=== PATIENT | male | born 1990 | race African-American/Black ===

== ENCOUNTER 2019-05-01 | Emergency (ER) | payer OTHER ==
[2019-05-01] MEDS ORDERED: HYDROCO/APAP1 TA9 PO (09:39)
== END 2019-05-01 10:40 | disposition home or self-care (01) ==
DX: S42.252A Displaced fracture of greater tuberosity of left humerus, initial encounter for closed fracture (principal); F17.210 Nicotine dependence, cigarettes, uncomplicated; W18.2XXA Fall in (into) shower or empty bathtub, initial encounter; Y93.E1 Activity, personal bathing and showering; Y92.002 Bathroom of unspecified non-institutional (private) residence as the place of occurrence of the external cause

== ENCOUNTER 2019-08-08 | Emergency (ER) | payer OTHER ==
[~2019-08-08] MED LIST: HYDROCO/APAP1 TA9 PO
[2019-08-08] MEDS ORDERED: VOLTAREN1%GEL TOP (16:59)
== END 2019-08-08 17:09 | disposition left against medical advice (07) | DRG 379 ==
DX: K92.0 Hematemesis (principal); R07.81 Pleurodynia; R10.9 Unspecified abdominal pain; S80.811A Abrasion, right lower leg, initial encounter; R22.0 Localized swelling, mass and lump, head; Y04.0XXA Assault by unarmed brawl or fight, initial encounter; Y92.149 Unspecified place in prison as the place of occurrence of the external cause; Z91.19 Patient's noncompliance with other medical treatment and regimen

== ENCOUNTER 2020-07-18 | Emergency (ER) | payer OTHER ==
[~2020-07-18] MED LIST changes: +VOLTAREN1%GEL TOP
[2020-07-18 12:33] LABS: HEMATOCRIT 33.3 % (39.0-50.0); HEMOGLOBIN 11.2 g/dl (14.0-18.0); IMMATURE GRANULOCYTES 0.7 % (0.0-5.0); MEAN CELL VOLUME 81.8 fL CALC (80.0-100.0); MEAN CORPUSCULAR HGB 27.5 pG CALC (26.0-32.0); MEAN CORPUSCULAR HGB CONC 33.6 g/dL CAL (32.0-36.0); NEUT# 8.7 thou/uL (1.82-7.42); RED BLOOD COUNT 4.07 mill/uL (4.70-6.10); RED CELL DISTRI WIDTH 13.1 % (11.5-15.5)
[2020-07-18 12:44] LABS: ALBUMIN 3.6 g/dL (3.2-5.0); ALKALINE PHOSPHATASE 74 u/l (38-126); ANION GAP 13 (6-22 (CALC)); BILIRUBIN, TOTAL 0.8 mg/dL (0.0-1.4); BUN 19 mg/dL (9-20); BUN/CREATININE RATIO 30 (12-20 (CALC)); CARBON DIOXIDE 30 mmol/l (22-30); CHLORIDE 88 mmol/l (95-108); CREATININE 0.6 mg/dL (0.7-1.3); ETHYL ALCOHOL 0 mg/dl (0-30); GFR > 60 ML/MIN (>=60 (CALC)); GFR FOR AFR.AMER. > 60 ML/MIN (>=60 (CALC)); LIPASE 310 u/l (23-300); SGOT/AST 25 u/l (17-59); SODIUM 128 mmol/l (137-146); TOTAL PROTEIN 7.1 g/dL (6.3-8.2)
[2020-07-18 13:15] LABS: URINE BLOOD DIPSTICK NEGATIVE (NEGATIVE); URINE COLOR YELLOW; URINE GLUCOSE - DIPSTICK NEGATIVE (NEGATIVE); URINE KETONE 40 mg/dL (NEGATIVE); URINE LEUK ESTERASE NEGATIVE (NEGATIVE); URINE PROTEIN - DIPSTICK NEGATIVE (NEG-TRACE)
[2020-07-18 13:16] LABS: URINE BILIRUBIN - DIPSTICK SMALL (NEGATIVE)
[2020-07-18 13:17] LABS: URINE NITRITE - DIPSTICK NEGATIVE (Negative)
== END 2020-07-18 14:05 | disposition left against medical advice (07) | DRG 382 ==
DX: K25.5 Chronic or unspecified gastric ulcer with perforation (principal); L98.9 Disorder of the skin and subcutaneous tissue, unspecified; F17.200 Nicotine dependence, unspecified, uncomplicated; R45.1 Restlessness and agitation; Z91.19 Patient's noncompliance with other medical treatment and regimen
CPT/HCPCS: Q9967

== ENCOUNTER 2020-07-28 21:15 | Emergency (ER) | payer OTHER ==
[2020-07-28 22:08] LABS: IMMATURE GRANULOCYTES 0.7 % (0.0-5.0); MEAN CORPUSCULAR HGB 27.4 pG CALC (26.0-32.0); MEAN CORPUSCULAR HGB CONC 32.2 g/dL CAL (32.0-36.0); NEUT# 14.66 thou/uL (1.82-7.42); RED BLOOD COUNT 3.14 mill/uL (4.70-6.10); RED CELL DISTRI WIDTH 14.4 % (11.5-15.5)
[2020-07-28 22:09] LABS: HEMATOCRIT 26.7 % (39.0-50.0); HEMOGLOBIN 8.6 g/dl (14.0-18.0)
[2020-07-28 22:25] LABS: PROTHROMBIN TIME 10.3 SECONDS (9.0-12.5)
[2020-07-28 22:28] LABS: ALBUMIN 3.5 g/dL (3.2-5.0); ALKALINE PHOSPHATASE 76 u/l (38-126); AMYLASE 83 u/l (30-110); BUN 10 mg/dL (9-20); BUN/CREATININE RATIO 18 (12-20 (CALC)); CARBON DIOXIDE 29 mmol/l (22-30); CREATININE 0.5 mg/dL (0.7-1.3); GFR > 60 ML/MIN (>=60 (CALC)); GFR FOR AFR.AMER. > 60 ML/MIN (>=60 (CALC)); LIPASE 162 u/l (23-300); SGOT/AST 31 u/l (17-59); TOTAL PROTEIN 7.2 g/dL (6.3-8.2)
[2020-07-28 22:30] LABS: ANION GAP 10 (6-22 (CALC)); BILIRUBIN, TOTAL 0.4 mg/dL (0.0-1.4); CHLORIDE 101 mmol/l (95-108); POTASSIUM 4.1 mmol/l (3.5-5.1); SODIUM 136 mmol/l (137-146)
[2020-07-28 22:39] LABS: MYOGLOBIN 13 ng/mL (0 - 121)
[2020-07-28 22:56] LABS: URINE BILIRUBIN - DIPSTICK NEGATIVE (NEGATIVE); URINE BLOOD DIPSTICK NEGATIVE (NEGATIVE); URINE COLOR YELLOW; URINE GLUCOSE - DIPSTICK NEGATIVE (NEGATIVE); URINE KETONE NEGATIVE (NEGATIVE); URINE LEUK ESTERASE NEGATIVE (NEGATIVE); URINE PH 6.5 (4.5-8.0); URINE PROTEIN - DIPSTICK NEGATIVE (NEG-TRACE); URINE UROBILINOGEN - DIPSTICK 0.2 E.U./dL (0.2)
[2020-07-28 23:00] LABS: URINE NITRITE - DIPSTICK NEGATIVE (Negative)
[2020-07-29 01:27] VITALS: BP 119/70
== END 2020-07-29 01:25 ==
LOC: ED 21:15
PROVIDERS: Emergency Medicine
DX: A41.9 Sepsis, unspecified organism (principal); K65.1 Peritoneal abscess; K66.8 Other specified disorders of peritoneum; D64.9 Anemia, unspecified; F17.200 Nicotine dependence, unspecified, uncomplicated; Z20.822 Contact with and (suspected) exposure to COVID-19
CPT/HCPCS: Q9967; S0164

== ENCOUNTER 2021-08-12 13:15 | Emergency (ER) | payer OTHER ==
[~2021-08-12] VITALS: Ht 165.1 cm; Wt 62.0 kg
[2021-08-12] VITALS (9 sets, daily range): BP systolic 90–151; BP diastolic 56–102
[~2021-08-12 13:15] MED LIST changes: +TRAMADOL HCL50 MG PO
[2021-08-12 14:05] LABS: HEMOGLOBIN 7.8 g/dl (14.0-18.0); IMMATURE GRANULOCYTES 0.2 % (0.0-5.0); MEAN CORPUSCULAR HGB 21.2 pG CALC (26.0-32.0); NEUT# 8.02 thou/uL (1.82-7.42); RED BLOOD COUNT 3.68 mill/uL (4.70-6.10); RED CELL DISTRI WIDTH 23.1 % (11.5-15.5)
[2021-08-12 14:19] LABS: ALBUMIN 2.9 g/dL (3.2-5.0); ALKALINE PHOSPHATASE 65 u/l (38-126); ANION GAP 6 (6-22 (CALC)); BUN 11 mg/dL (9-20); BUN/CREATININE RATIO 16 (12-20 (CALC)); CARBON DIOXIDE 29 mmol/l (22-30); CHLORIDE 106 mmol/l (95-108); CREATININE 0.7 mg/dL (0.7-1.3); GFR > 60 ML/MIN (>=60 (CALC)); GFR FOR AFR.AMER. > 60 ML/MIN (>=60 (CALC)); POTASSIUM 3.4 mmol/l (3.5-5.1); SGOT/AST 17 u/l (17-59); SODIUM 137 mmol/l (137-146)
[2021-08-12 14:23] LABS: MEAN CELL VOLUME 70.7 fL CALC (80.0-100.0)
== END 2021-08-12 16:12 | disposition left against medical advice (07) ==
LOC: ED 13:15 → ED-I 15:20 → ED 16:12
PROVIDERS: Internal Medicine
DX: R10.84 Generalized abdominal pain (principal); R52 Pain, unspecified; D69.6 Thrombocytopenia, unspecified; R79.89 Other specified abnormal findings of blood chemistry; D64.9 Anemia, unspecified; E87.6 Hypokalemia; M25.531 Pain in right wrist; F41.9 Anxiety disorder, unspecified; F17.200 Nicotine dependence, unspecified, uncomplicated; Z91.19 Patient's noncompliance with other medical treatment and regimen
CPT/HCPCS: Q9967

== ENCOUNTER 2021-08-14 04:27 | Emergency (ER) | payer OTHER ==
[~2021-08-14] VITALS: Ht 165.1 cm; Wt 62.2 kg
[2021-08-14] VITALS (24 sets, daily range): BP systolic 107–143; BP diastolic 73–97
[2021-08-14 05:35] LABS: HEMATOCRIT 26.9 % (39.0-50.0); IMMATURE GRANULOCYTES 0.2 % (0.0-5.0); MEAN CELL VOLUME 71.2 fL CALC (80.0-100.0); MEAN CORPUSCULAR HGB 21.2 pG CALC (26.0-32.0); MEAN CORPUSCULAR HGB CONC 29.7 g/dL CAL (32.0-36.0); NEUT# 8.3 thou/uL (1.82-7.42); RED BLOOD COUNT 3.78 mill/uL (4.70-6.10); RED CELL DISTRI WIDTH 24.3 % (11.5-15.5)
[2021-08-14 05:44] LABS: URINE BILIRUBIN - DIPSTICK NEGATIVE (NEGATIVE); URINE BLOOD DIPSTICK NEGATIVE (NEGATIVE); URINE COLOR YELLOW; URINE GLUCOSE - DIPSTICK NEGATIVE (NEGATIVE); URINE KETONE NEGATIVE (NEGATIVE); URINE LEUK ESTERASE NEGATIVE (NEGATIVE); URINE PROTEIN - DIPSTICK NEGATIVE (NEG-TRACE); URINE SPECIFIC GRAVITY 1.015
[2021-08-14 05:52] LABS: ALBUMIN 2.9 g/dL (3.2-5.0); ALKALINE PHOSPHATASE 50 u/l (38-126); AMYLASE 70 u/l (30-110); BUN 12 mg/dL (9-20); BUN/CREATININE RATIO 21 (12-20 (CALC)); CARBON DIOXIDE 28 mmol/l (22-30); CHLORIDE 106 mmol/l (95-108); CREATININE 0.6 mg/dL (0.7-1.3); GFR > 60 ML/MIN (>=60 (CALC)); GFR FOR AFR.AMER. > 60 ML/MIN (>=60 (CALC)); SODIUM 139 mmol/l (137-146); TOTAL PROTEIN 5.9 g/dL (6.3-8.2)
[2021-08-14 05:55] LABS: ANION GAP 10 (6-22 (CALC)); BILIRUBIN, TOTAL 0.3 mg/dL (0.0-1.4); POTASSIUM 5.1 mmol/l (3.5-5.1); SGOT/AST 34 u/l (17-59)
[2021-08-14 06:00] LABS: URINE NITRITE - DIPSTICK NEGATIVE (Negative)
== END 2021-08-14 11:15 | disposition left against medical advice (07) ==
LOC: ED 04:27
PROVIDERS: Emergency Medicine
DX: K92.1 Melena (principal); F41.9 Anxiety disorder, unspecified; D57.1 Sickle-cell disease without crisis; F17.210 Nicotine dependence, cigarettes, uncomplicated; Z91.19 Patient's noncompliance with other medical treatment and regimen
CPT/HCPCS: P9016; Q9967; S0164

== ENCOUNTER 2021-08-16 11:57 | Emergency (ER) | payer OTHER ==
[2021-08-16] VITALS (18 sets, daily range): BP systolic 124–154; BP diastolic 84–104
[~2021-08-16] VITALS: Ht 165.1 cm; Wt 65.0 kg
[2021-08-16 13:16] LABS: IMMATURE GRANULOCYTES 0.1 % (0.0-5.0); MEAN CELL VOLUME 72.7 fL CALC (80.0-100.0); MEAN CORPUSCULAR HGB 22.2 pG CALC (26.0-32.0); MEAN CORPUSCULAR HGB CONC 30.5 g/dL CAL (32.0-36.0); NEUT# 10.26 thou/uL (1.82-7.42); RED BLOOD COUNT 4.65 mill/uL (4.70-6.10); RED CELL DISTRI WIDTH 26.1 % (11.5-15.5)
[2021-08-16 13:25] LABS: URINE BILIRUBIN - DIPSTICK NEGATIVE (NEGATIVE); URINE BLOOD DIPSTICK NEGATIVE (NEGATIVE); URINE COLOR YELLOW; URINE GLUCOSE - DIPSTICK NEGATIVE (NEGATIVE); URINE KETONE NEGATIVE (NEGATIVE); URINE LEUK ESTERASE NEGATIVE (NEGATIVE); URINE PH 7.5 (4.5-8.0); URINE PROTEIN - DIPSTICK NEGATIVE (NEG-TRACE)
[2021-08-16 13:26] LABS: ALBUMIN 3.4 g/dL (3.2-5.0); ALKALINE PHOSPHATASE 86 u/l (38-126); ANION GAP 7 (6-22 (CALC)); BILIRUBIN, TOTAL 0.2 mg/dL (0.0-1.4); BUN 7 mg/dL (9-20); BUN/CREATININE RATIO 11 (12-20 (CALC)); CARBON DIOXIDE 32 mmol/l (22-30); CHLORIDE 101 mmol/l (95-108); CREATININE 0.7 mg/dL (0.7-1.3); GFR > 60 ML/MIN (>=60 (CALC)); GFR FOR AFR.AMER. > 60 ML/MIN (>=60 (CALC)); LIPASE 40 u/l (23-300); POTASSIUM 3.6 mmol/l (3.5-5.1); SGOT/AST 38 u/l (17-59); SODIUM 136 mmol/l (137-146); TOTAL PROTEIN 6.9 g/dL (6.3-8.2)
[2021-08-16 13:26] LABS: URINE NITRITE - DIPSTICK NEGATIVE (Negative)
[2021-08-16 13:27] LABS: HEMATOCRIT 33.8 % (39.0-50.0); HEMOGLOBIN 10.3 g/dl (14.0-18.0)
== END 2021-08-16 16:34 | disposition short-term general hospital (02) ==
LOC: ED 11:57
PROVIDERS: Nurse Practitioner
DX: K92.0 Hematemesis (principal); K92.1 Melena; F41.9 Anxiety disorder, unspecified; D57.1 Sickle-cell disease without crisis; F17.200 Nicotine dependence, unspecified, uncomplicated
CPT/HCPCS: S0164

== ENCOUNTER 2021-08-28 04:25 | Emergency (ER) | payer OTHER ==
[2021-08-28] VITALS (10 sets, daily range): BP systolic 139–157; BP diastolic 86–112
[~2021-08-28] VITALS: Ht 165.1 cm; Wt 72.0 kg
[2021-08-28 05:29] LABS: HEMATOCRIT 29.4 % (39.0-50.0); HEMOGLOBIN 8.9 g/dl (14.0-18.0); IMMATURE GRANULOCYTES 0.2 % (0.0-5.0); MEAN CELL VOLUME 71.4 fL CALC (80.0-100.0); MEAN CORPUSCULAR HGB 21.6 pG CALC (26.0-32.0); MEAN CORPUSCULAR HGB CONC 30.3 g/dL CAL (32.0-36.0); NEUT# 9.17 thou/uL (1.82-7.42); RED BLOOD COUNT 4.12 mill/uL (4.70-6.10); RED CELL DISTRI WIDTH 25.8 % (11.5-15.5)
[2021-08-28 05:40] LABS: ALBUMIN 3.3 g/dL (3.2-5.0); ALKALINE PHOSPHATASE 69 u/l (38-126); ANION GAP 13 (6-22 (CALC)); BILIRUBIN, TOTAL 0.2 mg/dL (0.0-1.4); BUN 10 mg/dL (9-20); BUN/CREATININE RATIO 17 (12-20 (CALC)); CHLORIDE 104 mmol/l (95-108); CREATININE 0.6 mg/dL (0.7-1.3); GFR > 60 ML/MIN (>=60 (CALC)); GFR FOR AFR.AMER. > 60 ML/MIN (>=60 (CALC)); POTASSIUM 4.2 mmol/l (3.5-5.1); SGOT/AST 14 u/l (17-59); SODIUM 138 mmol/l (137-146); TOTAL PROTEIN 6.4 g/dL (6.3-8.2)
[2021-08-28 05:41] LABS: CARBON DIOXIDE 25 mmol/l (22-30)
[2021-08-28 07:13] LABS: URINE BILIRUBIN - DIPSTICK NEGATIVE (NEGATIVE); URINE BLOOD DIPSTICK NEGATIVE (NEGATIVE); URINE COLOR YELLOW; URINE GLUCOSE - DIPSTICK NEGATIVE (NEGATIVE); URINE KETONE 15 mg/dL (NEGATIVE); URINE LEUK ESTERASE NEGATIVE (NEGATIVE); URINE PROTEIN - DIPSTICK NEGATIVE (NEG-TRACE); URINE SPECIFIC GRAVITY 1.015
[2021-08-28 07:16] LABS: URINE NITRITE - DIPSTICK NEGATIVE (Negative)
[2021-08-28] MEDS ORDERED: ULTRAM50 MG PO (10:31)
[2021-08-28] MEDS ORDERED: PROTONIX40 M2 PO (10:31)
[2021-08-28] MEDS ORDERED: ZOFRAN4 MG/TAB PO (10:31)
== END 2021-08-28 10:46 | disposition home or self-care (01) ==
LOC: ED 04:25
PROVIDERS: Emergency Medicine
DX: K29.70 Gastritis, unspecified, without bleeding (principal); D57.1 Sickle-cell disease without crisis; F41.9 Anxiety disorder, unspecified; Z20.822 Contact with and (suspected) exposure to COVID-19
CPT/HCPCS: Q9967; S0164

== ENCOUNTER 2022-11-09 06:42 | Observation (INO) | payer OTHER ==
[2022-11-09] VITALS (14 sets, daily range): BP systolic 123–158; BP diastolic 88–117
[~2022-11-09] VITALS: Ht 165.1 cm; Wt 61.6 kg
[~2022-11-09 06:42] MED LIST changes: +LOTRISONE EX; +ONDANSETRON4 MG PO; +PREVACID30 M1 PO; +PROTONIX40 M2 PO; +ULTRAM50 MG PO; +ZOFRAN4 MG/TAB PO
--- NOTE | 2022-11-09 07:00 | NUR ---
PT ARRIVED VIA EMS. PT IS IN PAIN 10/10 ALL OVER. ROLLING BACK AND FORTH IN THE BED. CRYING AND EMOTIONAL
--- NOTE | 2022-11-09 07:15 | NUR ---
ASSUMED CARED OF THE PATIENT FROM [facility] MCDANIELS. PATIENT IS SOMULANT AND STATES HE HAS 10/10 PAIN ALL OVER. HX OF SICKLE CELL. IV ESTABLISHED IN THE LEFT AC, 18G. BLOOD OBTAINED.DR. HASSAN COMPLETED RECTAL EXAM AND FOUND THAT PATIENT HAS INTERNAL AND EXTERNAL HEMMEROIDS.
[2022-11-09 07:39] LABS: BASO% 0.3 % (0-3); EOS% 0.3 % (0-8); HEMATOCRIT 32.9 % (39.0-50.0); HEMOGLOBIN 10.6 g/dl (14.0-18.0); IMMATURE GRANULOCYTES 0.1 % (0.0-5.0); MEAN CELL VOLUME 79.1 fL CALC (80.0-100.0); MEAN CORPUSCULAR HGB 25.5 pG CALC (26.0-32.0); MEAN CORPUSCULAR HGB CONC 32.2 g/dL CAL (32.0-36.0); MONO% 5.1 % (2-13); NEUT# 6.15 thou/uL (1.82-7.42); NEUT% 65.2 % (42-76); RED BLOOD COUNT 4.16 mill/uL (4.70-6.10); RED CELL DISTRI WIDTH 15.6 % (11.5-15.5)
[2022-11-09 07:49] LABS: ALBUMIN 3.7 g/dL (3.2-5.0); ALKALINE PHOSPHATASE 54 u/l (38-126); BUN 10 mg/dL (9-20); BUN/CREATININE RATIO 16 (12-20 (CALC)); CARBON DIOXIDE 27 mmol/l (22-30); CREATININE 0.6 mg/dL (0.7-1.3); ETHYL ALCOHOL 0 mg/dl (0-30); GFR FOR AFR.AMER. > 60 ML/MIN (>=60 (CALC)); GFR OTHER RACES > 60 ML/MIN (>=60 (CALC)); LIPASE 38 u/l (23-300); POTASSIUM 3.7 mmol/l (3.5-5.1); SGOT/AST 33 u/l (17-59); SODIUM 138 mmol/l (137-146); TOTAL PROTEIN 6.9 g/dL (6.3-8.2)
[2022-11-09 07:58] LABS: ANION GAP 9 (6-22 (CALC)); BILIRUBIN, TOTAL 0.4 mg/dL (0.2-1.3); CHLORIDE 106 mmol/l (95-108)
--- NOTE | 2022-11-09 08:15 | NUR ---
INFORMED BY DR. HASSAN THAT PATIENT IS TO BE ADMITTED . PATIENT IS GOING TO THE ER FOR HEMMEROIDAL REMOVAL. DR. HASSAN REMAINED AT THE BEDSIDE WITH ME WHILE PATIENT GAVE VERBAL CONSENT TO SURGICAL REMOVAL AND REPAIR OF RECTAL HEMMEROIDS. PATIENT NOW MEDICATED FOR HIS 10/10 PAIN WITH 4 MG OF IV MORPHINE. IVF OF NS 0.9% INFUSING. ZOFRAN AND PROTONIX ALSO PROVIDED.
[2022-11-09 08:46] LABS: URINE COLOR DK. YELLOW
[2022-11-09 08:47] LABS: URINE GLUCOSE - DIPSTICK NEGATIVE (NEGATIVE); URINE KETONE TRACE mg/dL (NEGATIVE); URINE PH 8.5 (4.5-8.0); URINE PROTEIN - DIPSTICK 30 mg/dL (NEG-TRACE)
[2022-11-09 08:48] LABS: URINE BLOOD DIPSTICK NEGATIVE (NEGATIVE); URINE LEUK ESTERASE NEGATIVE (NEGATIVE); URINE NITRITE - DIPSTICK NEGATIVE (Negative)
[2022-11-09 08:49] LABS: URINE AMORPH SEDIMENT MANY hpf (NONE-FER); URINE EPITHELIAL CELLS MODERATE EPI/hpf (0-FEW); URINE MUCUS MODERATE hpf (NONE-FEW)
--- NOTE | 2022-11-09 09:00 | NUR ---
PATIENT RESTING. PAIN HAS DECREASED TO 4/10 ON PAIN SCALE. AWAITING TO GET APPROVAL FROM THE OR TO SEND PATIENT TO THE FLOOR.
--- NOTE | 2022-11-09 09:22 | NUR ---
VERBAL REPORT GIVEN TO JABARI MCDANIELS ON MED-SURG
--- NOTE | 2022-11-09 09:36 | NUR ---
RECEIVED REPORT FROM [facility] IN ED. PT WILL COME TO THE FLOOR BEFORE OR.
--- NOTE | 2022-11-09 16:42 | NUR ---
PT WOKE AND STATED THAT HE WANTED TO LEAVE. RN ATTEMPTED TO EDUCATE AND CALM, BUT PT WAS ADAMANT. PT REMOVED HIS IV CATHETER - FOUND INTACT ON THE FLOOR OF THE ROOM. DRESSED HIMSELF AND LEFT THE FLOOR. PHYSICIAN NOTIFIED.
[2022-11-09] MEDS ORDERED: VOLTAREN - GENE75 MG PO (23:42)
== END 2022-11-09 16:44 | disposition left against medical advice (07) ==
LOC: ED 06:42 → MS2 07:58 → ED-I 08:03 → ED 08:03 → MS2 16:44
PROVIDERS: Family Medicine; ADMIT Surgery; ATTEND Surgery
DX: K64.2 Third degree hemorrhoids (principal); K64.4 Residual hemorrhoidal skin tags; D64.9 Anemia, unspecified; D57.1 Sickle-cell disease without crisis; F17.200 Nicotine dependence, unspecified, uncomplicated; Z87.11 Personal history of peptic ulcer disease; Z20.822 Contact with and (suspected) exposure to COVID-19
CPT/HCPCS: C9290; G0378; J0690; S0164

== ENCOUNTER 2022-11-09 21:56 | Emergency (ER) | payer OTHER ==
[~2022-11-09] VITALS: Ht 165.1 cm; Wt 61.0 kg
[2022-11-09 22:03] VITALS: BP 137/88
[2022-11-09 22:15] VITALS: BP 131/78
[2022-11-09 22:30] VITALS: BP 115/76
[2022-11-09] MEDS ORDERED: VOLTAREN - GENE75 MG PO (23:42)
[2022-11-10 00:05] VITALS: BP 115/76
== END 2022-11-10 00:09 | disposition home or self-care (01) ==
LOC: ED 21:56
DX: S39.012A Strain of muscle, fascia and tendon of lower back, initial encounter (principal); M54.2 Cervicalgia; D57.1 Sickle-cell disease without crisis; F17.200 Nicotine dependence, unspecified, uncomplicated; X58.XXXA Exposure to other specified factors, initial encounter; Z98.890 Other specified postprocedural states; Z87.11 Personal history of peptic ulcer disease

== ENCOUNTER 2022-11-15 07:02 | Emergency (ER) | payer OTHER ==
[2022-11-15] VITALS (7 sets, daily range): BP systolic 148–174; BP diastolic 96–117
[~2022-11-15] VITALS: Ht 165.1 cm; Wt 61.0 kg
[~2022-11-15 07:02] MED LIST changes: +VOLTAREN - GENE75 MG PO
[2022-11-15 07:24] LABS: BASO% 0.2 % (0-3); HEMATOCRIT 31.5 % (39.0-50.0); HEMOGLOBIN 9.9 g/dl (14.0-18.0); IMMATURE GRANULOCYTES 0.1 % (0.0-5.0); LYMPH% 32.4 % (15-41); MEAN CELL VOLUME 78.9 fL CALC (80.0-100.0); MEAN CORPUSCULAR HGB 24.8 pG CALC (26.0-32.0); MEAN CORPUSCULAR HGB CONC 31.4 g/dL CAL (32.0-36.0); MONO% 5.4 % (2-13); NEUT# 5.01 thou/uL (1.82-7.42); NEUT% 60.9 % (42-76); RED BLOOD COUNT 3.99 mill/uL (4.70-6.10); RED CELL DISTRI WIDTH 15.9 % (11.5-15.5)
[2022-11-15 07:37] LABS: ALBUMIN 3.3 g/dL (3.2-5.0); ALKALINE PHOSPHATASE 67 u/l (38-126); ANION GAP 9 (6-22 (CALC)); BILIRUBIN, TOTAL 0.3 mg/dL (0.2-1.3); BUN 11 mg/dL (9-20); BUN/CREATININE RATIO 16 (12-20 (CALC)); CARBON DIOXIDE 24 mmol/l (22-30); CHLORIDE 107 mmol/l (95-108); CREATININE 0.7 mg/dL (0.7-1.3); GFR FOR AFR.AMER. > 60 ML/MIN (>=60 (CALC)); GFR OTHER RACES > 60 ML/MIN (>=60 (CALC)); LIPASE 78 u/l (23-300); POTASSIUM 4.1 mmol/l (3.5-5.1); SGOT/AST 18 u/l (17-59); SODIUM 137 mmol/l (137-146); TOTAL PROTEIN 6.1 g/dL (6.3-8.2)
[2022-11-15 08:28] LABS: URINE COLOR YELLOW
[2022-11-15 08:29] LABS: URINE BILIRUBIN - DIPSTICK NEGATIVE (NEGATIVE); URINE GLUCOSE - DIPSTICK NEGATIVE (NEGATIVE); URINE KETONE Negative (NEGATIVE); URINE NITRITE - DIPSTICK NEGATIVE (Negative); URINE PH 8.5 (4.5-8.0); URINE PROTEIN - DIPSTICK NEGATIVE (NEG-TRACE); URINE UROBILINOGEN - DIPSTICK 0.2 E.U./dL (0.2)
[2022-11-15 08:30] LABS: URINE BLOOD DIPSTICK NEGATIVE (NEGATIVE); URINE LEUK ESTERASE NEGATIVE (NEGATIVE)
[2022-11-15 08:32] LABS: URINE AMORPH SEDIMENT MANY hpf (NONE-FER); URINE SQUAMOUS EPITHELIAL CELL FEW EPI/hpf (0-FEW)
[2022-11-15] MEDS ORDERED: LEVSIN0.125 M1 PO (08:39)
[2022-11-15] MEDS ORDERED: CITRATE OF MEGNESIA PO (08:39)
== END 2022-11-15 08:50 | disposition home or self-care (01) ==
LOC: ED 07:02
PROVIDERS: Family Medicine
DX: K56.41 Fecal impaction (principal); F41.9 Anxiety disorder, unspecified; D57.1 Sickle-cell disease without crisis; F17.200 Nicotine dependence, unspecified, uncomplicated; Z87.11 Personal history of peptic ulcer disease

== ENCOUNTER 2023-10-19 03:05 | Emergency (ER) | payer OTHER ==
[~2023-10-19] VITALS: Ht 165.1 cm; Wt 72.0 kg
[~2023-10-19 03:05] MED LIST changes: +CITRATE OF MEGNESIA PO; +KEPPRA500 M2 PO; +LEVSIN0.125 M1 PO
[2023-10-19] MEDS ORDERED: DiphenhydrAMINE HCL 50 MG/ML SDV IV ONE (03:25)
[2023-10-19] MEDS ORDERED: PROMETHAZINE HCL 25 MG/ML AMP IV ONE (03:25)
[2023-10-19] MEDS ORDERED: SODIUM CHLORIDE 0.9% 1,000 ML IV ONE (03:25)
[2023-10-19 03:30] VITALS: BP 135/88
[2023-10-19] MEDS ORDERED: LORazepam 2 MG/ML IV ONE (03:30)
[2023-10-19 03:35] LABS: BASO% 0.3 % (0-3); EOS% 0.2 % (0-8); IMMATURE GRANULOCYTES 0.1 % (0.0-5.0); LYMPH% 30.2 % (15-41); MEAN CORPUSCULAR HGB 24.4 pG CALC (26.0-32.0); MEAN CORPUSCULAR HGB CONC 31.1 g/dL CAL (32.0-36.0); MONO% 3.7 % (2-13); NEUT# 6.14 thou/uL (1.82-7.42); NEUT% 65.5 % (42-76); RED BLOOD COUNT 5.32 mill/uL (4.70-6.10); RED CELL DISTRI WIDTH 19.1 % (11.5-15.5)
[2023-10-19 03:46] LABS: HEMATOCRIT 41.8 % (39.0-50.0); MEAN CELL VOLUME 78.6 fL CALC (80.0-100.0)
[2023-10-19 03:54] LABS: ALBUMIN 4.6 g/dL (3.2-5.0); BILIRUBIN, TOTAL 0.3 mg/dL (0.2-1.3); CREATININE 0.8 mg/dL (0.7-1.3); TOTAL PROTEIN 7.7 g/dL (6.3-8.2)
[2023-10-19 03:55] VITALS: BP 132/94
[2023-10-19 05:01] VITALS: BP 109/75
[2023-10-19] MEDS ORDERED: LACTATED RINGER'S 1,000 ML IV ONE (05:35)
[2023-10-19 05:58] LABS: URINE BILIRUBIN - DIPSTICK Negative (NEGATIVE); URINE BLOOD DIPSTICK Trace-intact (NEGATIVE); URINE GLUCOSE - DIPSTICK Negative (NEGATIVE); URINE KETONE Trace mg/dL (NEGATIVE); URINE LEUK ESTERASE Negative (NEGATIVE); URINE NITRITE - DIPSTICK Negative (Negative); URINE PH 6.5 (4.5-8.0); URINE PROTEIN - DIPSTICK Negative (NEG-TRACE); URINE SPECIFIC GRAVITY 1.015; URINE UROBILINOGEN - DIPSTICK 0.2 E.U./dL (0.2)
[2023-10-19 06:01] LABS: URINE COLOR Yellow
[2023-10-19 06:03] VITALS: BP 98/70
[2023-10-19] MEDS ORDERED: KEPPRA750 M2 PO (06:10)
[2023-10-19 06:30] VITALS: BP 98/70
== END 2023-10-19 06:30 | disposition home or self-care (01) ==
LOC: ED 03:05
PROVIDERS: Family Medicine
DX: G40.409 Other generalized epilepsy and epileptic syndromes, not intractable, without status epilepticus (principal); D57.1 Sickle-cell disease without crisis; F17.200 Nicotine dependence, unspecified, uncomplicated; T42.76XA Underdosing of unspecified antiepileptic and sedative-hypnotic drugs, initial encounter; Z91.128 Patient's intentional underdosing of medication regimen for other reason; Z86.73 Personal history of transient ischemic attack (TIA), and cerebral infarction without residual deficits
CPT/HCPCS: J1953; J2060

== ENCOUNTER 2024-04-25 00:49 | Emergency (ER) | payer OTHER ==
[~2024-04-25] VITALS: Ht 165.1 cm; Wt 74.0 kg
[~2024-04-25 00:49] MED LIST changes: +KEPPRA750 M2 PO
[2024-04-25 00:56] VITALS: BP 152/109
[2024-04-25 01:01] VITALS: BP 155/100
[2024-04-25 02:22] LABS: BASO% 0.5 % (0-3); HEMATOCRIT 45.9 % (39.0-50.0); IMMATURE GRANULOCYTES 0.1 % (0.0-5.0); LYMPH% 18.5 % (15-41); MEAN CELL VOLUME 81.8 fL CALC (80.0-100.0); MEAN CORPUSCULAR HGB 27.1 pG CALC (26.0-32.0); MEAN CORPUSCULAR HGB CONC 33.1 g/dL CAL (32.0-36.0); MONO% 5.7 % (2-13); NEUT# 5.63 thou/uL (1.82-7.42); NEUT% 75.2 % (42-76); RED BLOOD COUNT 5.61 mill/uL (4.70-6.10); RED CELL DISTRI WIDTH 14.4 % (11.5-15.5)
[2024-04-25 02:24] LABS: HEMOGLOBIN 15.2 g/dl (14.0-18.0)
[2024-04-25 02:35] LABS: ALBUMIN 4.9 g/dL (3.2-5.0); CREATININE 0.9 mg/dL (0.7-1.3); POTASSIUM 3.7 mmol/l (3.5-5.1); TOTAL PROTEIN 8.1 g/dL (6.3-8.2)
[2024-04-25 02:36] LABS: BILIRUBIN, TOTAL 0.7 mg/dL (0.2-1.3)
[2024-04-25] MEDS ORDERED: PT DOESN'T KNOW (02:41)
[2024-04-25 03:00] VITALS: BP 155/100
[2024-04-25] MEDS ORDERED: KEPPRA500 M2 PO (03:29)
== END 2024-04-25 03:44 | disposition home or self-care (01) ==
LOC: ED 00:49
PROVIDERS: Emergency Medicine
DX: R56.9 Unspecified convulsions (principal); Z87.11 Personal history of peptic ulcer disease; D57.1 Sickle-cell disease without crisis; Z72.0 Tobacco use
CPT/HCPCS: J1953